=== PATIENT | male | born 1960 | race Caucasian/White ===

== ENCOUNTER 2017-01-28 09:42 | Observation (INO) | payer BC ==
[~2017-01-28 09:42] MED LIST: ALEVE220 MG PO; GINSENG PO; MULTIVITAMI1 PO; OSTEO BI-FLEX1 EACH PO; TUMERIC PO; VITAMIN B COMPLEX PO; VITC500 PO
[2017-01-28 12:29] LABS: CALCIUM, SERUM 9.5 MG/DL (8.5-10.4); CHLORIDE, SERUM 104 MMOL/L (96-112); CHOL/HDL RATIO(NOT ORDER) 3.7 (0-5); CHOLESTEROL 189 MG/DL (< 200); CO2 (CARBON DIOXIDE) 29 MMOL/L (24-34); CREATININE 0.87 MG/DL (0.70-1.30); GFR AFRICAN AMERICAN 113 ML/MIN (>=60); GFR NON AFRICAN AMERICAN 97 ML/MIN (>=60); GLUCOSE, SERUM 116 MG/DL (60-99); HDL CHOLESTEROL 51 MG/DL (> 39); LDL CHOLESTEROL 117 MG/DL (< 130); NON-HDL CHOLESTEROL 138 MG/DL (< 160); POTASSIUM, SERUM 3.9 MMOL/L (3.5-5.3); SODIUM, SERUM 137 MMOL/L (135-148); TRIGLYCERIDE 109 MG/DL (< 150)
[2017-01-28 12:30] LABS: BUN (BLOOD UREA NITROGEN) 10 MG/DL (6-23)
[2017-01-29 05:52] LABS: BASOPHILS 0.3 %; BASOPHILS ABSOLUTE 0.03 10/3/uL (0.0-0.16); EOSINOPHILS 1.5 %; EOSINOPHILS ABSOLUTE 0.13 10/3/uL (0.0-0.53); HEMATOCRIT 41.4 % (40.0-51.0); HEMOGLOBIN 13.9 g/dL (13.6-17.8); IMMATURE GRANULOCYTES 0.2 %; IMMATURE GRANULOCYTES ABSOLUTE 0.02 10/3/uL (0.0-0.11); LYMPHOCYTES 14.7 %; LYMPHOCYTES ABSOLUTE 1.31 10/3/uL (0.67-4.30); MANUAL DIFF NO %; MEAN CORPUS HGB CONC 33.6 g/dL (32.0-36.0); MEAN CORPUSCULAR HEMOGLOB 27.5 pg (26.0-34.0); MEAN CORPUSCULAR VOLUME 81.8 fL (80-100); MEAN PLATELET VOLUME 11.3 fL (9.2-13.0); MONOCYTES 9.8 %; MONOCYTES ABSOLUTE 0.87 10/3/uL (0.21-1.20); NEUTROPHILS 73.5 %; NEUTROPHILS ABSOLUTE 6.54 10/3/uL (2.02-8.40); PLATELET COUNT 159 10/3/uL (150-400); RBC DISTRIBUTION WIDTH 14.4 % (12.0-16.0); RED CELL COUNT 5.06 10/6/uL (4.7-6.1); WHITE BLOOD CELLS 8.9 10/3/uL (4.5-10.5)
[2017-01-29 06:09] LABS: BUN (BLOOD UREA NITROGEN) 8 MG/DL (6-23); CHLORIDE, SERUM 108 MMOL/L (96-112); CO2 (CARBON DIOXIDE) 25 MMOL/L (24-34); CREATININE 0.77 MG/DL (0.70-1.30); GFR AFRICAN AMERICAN 118 ML/MIN (>=60); GFR NON AFRICAN AMERICAN 102 ML/MIN (>=60); GLUCOSE, SERUM 122 MG/DL (60-99); POTASSIUM, SERUM 3.8 MMOL/L (3.5-5.3); SODIUM, SERUM 138 MMOL/L (135-148)
[2017-01-29] MEDS ORDERED: ASAB PO (08:25)
[2017-01-29] MEDS ORDERED: COREG3 PO (08:25)
[2017-01-29] MEDS ORDERED: EFFIENT10 PO (08:25)
[2017-01-29] MEDS ORDERED: LIPITOR40 PO (08:26)
[2017-01-29] MEDS ORDERED: NTG150 SL (08:26)
== END 2017-01-29 09:24 | disposition home or self-care (01) ==
LOC: CORLMH 09:42 → SSU1 11:26
PROVIDERS: Internal Medicine Cardiovascular Disease
PROC: 4A023N7 Measurement of Cardiac Sampling and Pressure, Left Heart, Percutaneous Approach (ICD-10-PCS; principal; 2017-01-28)
PROC: B2101ZZ Fluoroscopy of Single Coronary Artery using Low Osmolar Contrast (ICD-10-PCS; 2017-01-28)
PROC: 027035Z Dilation of Coronary Artery, One Artery with Two Drug-eluting Intraluminal Devices, Percutaneous Approach (ICD-10-PCS; 2017-01-28)
DX: I25.118 Atherosclerotic heart disease of native coronary artery with other forms of angina pectoris (principal); I25.82 Chronic total occlusion of coronary artery; Z79.899 Other long term (current) drug therapy
CPT/HCPCS: 80048; 80061; 85025; 85347; 93005; 93458; 99152; 99153; A9270-GY; C1725; C1769; C1874; C1887; C1894; C9600; G0378; J2250; J3010; Q9967